=== PATIENT | female | born 1955 | race Caucasian/White ===

== ENCOUNTER 2017-06-05 11:29 | Emergency (ER) | payer OTHER, SELFPAY ==
[2017-06-05] MEDS ORDERED: Ketorolac Tromethamine 60 MG/2 ML VIAL ONE (12:10)
--- NOTE | 2017-06-05 13:40 | RAD ---
PELVIS ONE VIEW: 06/05/2017 FINDINGS: A single portable view is submitted. No gross fractures are identified. The SI joints appear normal , as does the symphysis. The pubic rings appear intact. No hip fractures are seen, though there are some mild degenerative changes in each joint. Subtle sacral fractures would be missed on this study . IMPRESSION: No acute bony findings. POS: HOME
--- NOTE | 2017-06-05 13:42 | RAD ---
PORTABLE CHEST: 06/05/2017 FINDINGS: The heart is normal in size for age and an AP film. There is some slight deviation of the trachea to the left, at the thoracic inlet. It might be worth a thyroid examination to be sure there is no rig ht lobe pathology. The lungs are clear. No infiltrate, effusion, or pneumothorax is seen. There is no mediastinal widening or shift. Regarding lines seen over the left 8th and 9th ribs, this appears to be a mach effect from the heart border rather than a fracture. If clinical suspicion of fracture is high, then dedicated rib films might be needed. Some mild degenerative changes are seen in the A C joints. IMPRESSION: 1. No definite acute findings. 2. Mild deviation of the trachea to the left at the thoracic inlet. Thyroid followup advised. CODE T POS: HOME
== END 2017-06-05 12:32 | disposition home or self-care (01) ==
LOC: BURERS 11:29
DX: S20.212A Contusion of left front wall of thorax, initial encounter (principal); E11.9 Type 2 diabetes mellitus without complications; W01.198A Fall on same level from slipping, tripping and stumbling with subsequent striking against other object, initial encounter; Y92.69 Other specified industrial and construction area as the place of occurrence of the external cause; Y99.0 Civilian activity done for income or pay
CPT/HCPCS: 71010; 72170; 96374; J1885